=== PATIENT | female | born 1985 | race African-American/Black ===

== ENCOUNTER 2018-06-06 11:50 | Outpatient (CLI) | payer MEDICAID | END 2018-06-06 13:30 | disposition home or self-care (01) | LOC: OBT 11:50 → L-D 11:51 → OBT 13:30 | DX: O41.03X0 Oligohydramnios, third trimester, not applicable or unspecified (principal); Z3A.38 38 weeks gestation of pregnancy | CPT/HCPCS: 76818 ==

== ENCOUNTER 2018-06-08 14:45 | Inpatient (IN) | payer MEDICAID ==
[2018-06-08] MEDS ORDERED: OXYTOCIN 30 UNITS/LR 500 ML IV (18:30)
[2018-06-08] MEDS ORDERED: CARBOPROST 250 MCG INJ IM (18:30)
[2018-06-08] MEDS ORDERED: LIDOCAINE 1% (MPF) 30 ML INJ INJ (18:30)
[2018-06-08] MEDS ORDERED: BUTORPHANOL 2 MG INJ IV (18:30)
[2018-06-08] MEDS ORDERED: METHYLERGONOVINE 0.2 MG INJ IM (18:30)
[2018-06-08] MEDS ORDERED: MISOPROSTOL 200 MCG TAB PR (18:30)
[2018-06-08] MEDS: LACTATED RINGER'S 1,000 ML IV* (18:46)
[2018-06-08 18:48] LABS: ADD MAN DIFF? NO
[2018-06-08 18:51] LABS: WHITE BLOOD COUNT 6.8 10^3/ul (4.8-10.8)
[2018-06-08 18:51] LABS: BASOPHILS % 0.3 % (0.0-2.0); EOSINOPHILS # 0.1 10^3/ul (0.0-0.5); EOSINOPHILS % 0.9 % (0.0-7.0); HEMATOCRIT 28.8 % (37.0-47.0); HEMOGLOBIN 9.2 g/dl (12.0-16.0); LYMPHOCYTES # 1.5 10^3/ul (0.8-2.9); LYMPHOCYTES % 22.3 % (15.0-51.0); MEAN CORPUSCULAR HEMOGLOBIN 25.6 pg (29.0-33.0); MEAN CORPUSCULAR HGB CONC 31.9 g/dl (32.0-37.0); MEAN PLATELET VOLUME 10.7 fl (7.4-10.4); MONOCYTE # 0.6 10^3/ul (0.3-0.9); MONOCYTES % 8.6 % (0.0-11.0); NEUTROPHIL # 4.5 10^3/ul (1.6-7.5); NEUTROPHILS % 66.4 % (39.0-77.0); PLATELET COUNT 185 10^3/UL (140-415); RED CELL DISTRIBUTION WIDTH 15.2 % (11.5-14.5)
[2018-06-08] MEDS ORDERED: FENTAnyl 2MCG/ML-ROPIV 0.2% 100 ML (19:01)
[2018-06-08 19:05] LABS: INR 0.93; PROTIME 12.6 Sec (11.9-14.9)
[2018-06-08] MEDS: OXYTOCIN 30 UNITS/LR 500 ML IV ×2 (19:49→22:24)
[2018-06-08] MEDS ORDERED: DIPHENHYDRAMINE 50 MG INJ IV (20:00)
[2018-06-08] MEDS ORDERED: FENTAnyl 2MCG/ML-ROPIV 0.2% 100 ML BAG EPI (20:00)
[2018-06-08] MEDS ORDERED: NALOXONE (0.4 MG/ML) INJ IV (20:00)
[2018-06-08] MEDS ORDERED: ONDANSETRON 4 MG INJ IV ×2 (20:00→22:00)
[2018-06-08] MEDS: AMPICILLIN 2 GM/NS (PMX) 100 ML IV (20:02)
[2018-06-08] MEDS: AMPICILLIN 1 GM/NS (PMX) 50 ML IV (20:03)
[2018-06-08 21:31] LABS: HEPATITIS B SURFACE ANTIGEN NEGATIVE (NEGATIVE)
[2018-06-08] MEDS ORDERED: HYDROCODONE/APAP (5/325) TAB PO (22:00)
[2018-06-08] MEDS ORDERED: OXYCODONE/ASPIRIN (4.88/325) TAB PO ×2 (22:00)
[2018-06-08] MEDS ORDERED: ACETAMINOPHEN 325 MG TAB PO (22:00)
[2018-06-08] MEDS ORDERED: DIBUCAINE 1% 30 GM OINT PR (22:00)
[2018-06-08] MEDS: HYDROCODONE/APAP (5/325) TAB PO (22:20)
[2018-06-08] MEDS: WITCH HAZEL/GLYCERIN PAD PR (22:21)
[2018-06-08] MEDS: LANOLIN 7 GM TUBE TOP (22:21)
[2018-06-08] MEDS: BENZOCAINE 20% 56 ML SPRAY TOP (22:21)
[2018-06-08] MEDS: IBUPROFEN 600 MG TAB PO (23:26)
[2018-06-09] MEDS: IBUPROFEN 600 MG TAB PO ×3 (05:33→17:48)
[2018-06-09] MEDS: OXYTOCIN 30 UNITS/LR 500 ML IV (05:43)
[2018-06-09 08:21] LABS: ADD MAN DIFF? NO
[2018-06-09 08:27] LABS: WHITE BLOOD COUNT 8.8 10^3/ul (4.8-10.8)
[2018-06-09 08:27] LABS: BASOPHILS % 0.2 % (0.0-2.0); EOSINOPHILS # 0.1 10^3/ul (0.0-0.5); EOSINOPHILS % 0.6 % (0.0-7.0); HEMATOCRIT 26.3 % (37.0-47.0); HEMOGLOBIN 8.4 g/dl (12.0-16.0); LYMPHOCYTES # 1.5 10^3/ul (0.8-2.9); MEAN CORPUSCULAR HEMOGLOBIN 25.4 pg (29.0-33.0); MEAN CORPUSCULAR HGB CONC 31.9 g/dl (32.0-37.0); MEAN CORPUSCULAR VOLUME 79.5 fl (82.0-101.0); MEAN PLATELET VOLUME 10.9 fl (7.4-10.4); MONOCYTE # 0.7 10^3/ul (0.3-0.9); MONOCYTES % 8.1 % (0.0-11.0); NEUTROPHIL # 6.4 10^3/ul (1.6-7.5); NEUTROPHILS % 72.6 % (39.0-77.0); PLATELET COUNT 154 10^3/UL (140-415); RED BLOOD COUNT 3.31 10^6/ul (4.20-5.40); RED CELL DISTRIBUTION WIDTH 15.2 % (11.5-14.5)
[2018-06-09] MEDS: SENNA/DOCUSATE NA (8.6MG/50MG) TAB PO ×2 (09:12→21:50)
[2018-06-09] MEDS: MEASLES,MUMPS,RUBELLA VACCINE INJ SC* (15:02)
[2018-06-09 19:41] LABS: RAPID PLASMA REAGIN NONREACTIVE (NR)
[2018-06-09] MEDS: WITCH HAZEL/GLYCERIN PAD PR (21:54)
[2018-06-09] MEDS: BENZOCAINE 20% 56 ML SPRAY TOP (21:54)
[2018-06-10] MEDS: IBUPROFEN 600 MG TAB PO ×3 (00:02→11:47)
[2018-06-10] MEDS: SENNA/DOCUSATE NA (8.6MG/50MG) TAB PO (09:39)
[2018-06-10] MEDS: BENZOCAINE 20% 56 ML SPRAY TOP (12:41)
[2018-06-10] MEDS: WITCH HAZEL/GLYCERIN PAD PR (12:42)
[2018-06-10] MEDS: LANOLIN 7 GM TUBE TOP (12:42)
== END 2018-06-10 15:21 | disposition home or self-care (01) | DRG 775 ==
LOC: OBT 14:45 → L-D 14:45 → OBT 18:10 → L-D 18:10 → PP1 21:46
PROVIDERS: Obstetrics & Gynecology
PROC: 10E0XZZ Delivery of Products of Conception, External Approach (ICD-10-PCS; principal; 2018-06-08)
PROC: 0HQ9XZZ Repair Perineum Skin, External Approach (ICD-10-PCS; 2018-06-08)
PROC: 3E033VJ Introduction of Other Hormone into Peripheral Vein, Percutaneous Approach (ICD-10-PCS; 2018-06-08)
DX: O70.0 First degree perineal laceration during delivery (principal); Z3A.39 39 weeks gestation of pregnancy; Z37.0 Single live birth
CPT/HCPCS: 62319; 76818; 85025; 85610; 85730; 86592; 86850; 86900; 86901; 87340